=== PATIENT | male | born 1925 | race Caucasian/White ===

== ENCOUNTER → 2016-05-09 | Outpatient (CLI) | payer MEDICARE, OTHER ==
[~2016-05-09] MED LIST: ASPIRIN LO-DOSE81 MG PO; CENTRUM SILVER1 EAC1 PO; DEXILANT60 MG PO; FLOMAX0.4 MG PO; IMDUR30 MG PO; JANUVIA 100 MG100 MG PO; LEVEMIR FL100 UNIT/1 SUB-Q; LEVOTHROID(SYN75 MCG PO; LIPITOR10 MG PO; MIRALAX PO527 GM/BOT PO; NITROSTAT0.4 MG SL; NORVASC2.5 MG PO; PRILOSEC20 MG PO; REMERON15 MG PO; SIMBRINZA 1%-0.28 ML OPHTH; SYSTANE 0.3-0.1 EACH IOC; TIMOPTIC5 M1 OPHTH; TOPROL XL25 MG PO; TRAVATAN Z OPH2.5 ML OPHTH; TUMS REGULAR ST1 TAB PO; TYLENOL650 MG R; VITAMIN B-1000 MCG/M IM; VITAMIN B-1000 MCG/M SUB-Q; ZYLOPRIM300 MG PO
[2016-05-09 14:06] LABS: ALBUMIN 3.6 gm/dL (3.5-5.0); ANION GAP 8.2 (10.0-19.0); CALCIUM 8.4 mg/dL (8.5-10.5); CREATININE 1.5 mg/dL (0.6-1.3); MAGNESIUM 2.1 mg/dL (1.3-2.6); PHOSPHORUS 3.2 mg/dL (2.5-4.9); POTASSIUM 4.2 mMol/L (3.7-5.1)
== END | disposition disaster alternative care site (69) ==
LOC: LCNC 13:53
PROVIDERS: Internal Medicine Interventional Cardiology
DX: R07.9 Chest pain, unspecified (principal)

== ENCOUNTER → 2016-05-10 | Outpatient (CLI) | payer MEDICARE, OTHER ==
--- NOTE | ~2016-05-10 | ESTC ---
Cardiac Perfusion Imaging Demographics Patient Name BRANDY Manning Gender Male Patient Number [id number] Race Visit Number [id number] Ethnicity Corporate ID Room Number Accession Number [id number] Height Date of 1925 Weight Age 89 year(s) BSA Referring Braeden Benedict MD BMI Physician Interpreting Braeden Benedict MD Date of study 05/10/2016 Physician Supervising Julio Duvall NM Lilly Manzano MD/MARELY Sahu APRN Technologist Ordering Braeden Benedict MD Stress Rothenberger RVT, Physician cutter grind tool technician RDCS Linette Goodrich RDCS, RVT Stress ECG Julio Duvall Nurse Propmoises Castaneda RN Reading Physician Adelina FLORES Procedure Procedure Type: Nuclear Stress Test:Cardiolite Stress Test Procedure Start time: 05/10/2016 08:30 Indications: Chest pain. Risk Factors The patient risk factors include:former tobacco use, treated hypercholesterolemia, treated hypertension, insulin treated diabetes mellitus and dyslipidemia. Conclusions Summary Cardiolite SPECT images demonstrates homogenous uptake of radioactive tracer. No evidence of inducible reversible defect and no evidence of underlying fixed defect. Gross inspection of TID is normal. Gated images demonstrate normal left ventricular systolic function. LVEF is 58% Stress Protocols Resting ECG 1:1 AV paced. Resting HR:65 bpm Resting BP:183/80 mmHg Pre-stress physical exam: Patient assessed by Kala Kmi APRN prior to testing. Stress Protocol:Pharmacologic Predicted HR: 131 bpm HR response: Appropriate BP response: Appropriate Reason for termination:Infusion complete ECG Findings Indeterminate ECG due to baseline abnormalities. Arrhythmias No rhythm abnormality. Symptoms Shortness of breath. Stress Interpretation Negative stress ECG for ischemia. Normal heart rate and blood pressure response to stress. No atrial or ventricular arrhythmias. Remains in paced rythm. Imaging Results Applied corrections - Motion correction applied High risk findings Summed scores - Summed stress score: 11 - Summed rest score: 3 - Summed difference score: 8 Stress ejection Ejection fraction:58 % EDV :83 ml ESV :35 ml Stroke volume :48 ml LV mass :119 gr Imaging Protocols Rest Stress Isotope:Tc99m Sestamibi IV Isotope: Tc99m Sestamibi IV Isotope dose:11.2 mCi Isotope dose:34.8 mCi Date:05/10/2016 07:30 Date:05/10/2016 09:44 Technique: SPECT Technique: Gated Supine SPECT Supine Scan Time:45-60 minutes post injection Procedure Medications - Regadenoson (Lexiscan) 0.4 mg IV over 10-15 sec. I.V. 0.4 mg. Medical History Admission Data Admission date: 05/10/2016 Admission Time: 07:01 Hospital Status: Outpatient. Signatures dtt: Jak Deras (cardio) dtd: 05/10/16 0830 Physician Self Edit
== END | disposition disaster alternative care site (69) ==
LOC: GRAD 07:01
DX: R07.9 Chest pain, unspecified (principal); R06.02 Shortness of breath
CPT/HCPCS: A9500; J2785

== ENCOUNTER → 2016-06-20 | Outpatient (CLI) | payer MEDICARE, OTHER | END | disposition disaster alternative care site (69) | LOC: GRAD 07:38 | DX: R63.0 Anorexia (principal); K22.2 Esophageal obstruction; K44.9 Diaphragmatic hernia without obstruction or gangrene; K22.4 Dyskinesia of esophagus ==

== ENCOUNTER → 2016-06-30 | Day surgery (SDC) | payer MEDICARE, OTHER ==
[~2016-06-30] VITALS: Ht 167.6 cm; Wt 69.6 kg
== END | disposition disaster alternative care site (69) ==
LOC: GPOC 06-27 14:00 → GEND 07:22 → GPOC 07:30
PROC: 0DB58ZX Excision of Esophagus, Via Natural or Artificial Opening Endoscopic, Diagnostic (ICD-10-PCS; principal; 2016-06-30)
PROC: 0DB98ZX Excision of Duodenum, Via Natural or Artificial Opening Endoscopic, Diagnostic (ICD-10-PCS; 2016-06-30)
PROC: 0DB68ZX Excision of Stomach, Via Natural or Artificial Opening Endoscopic, Diagnostic (ICD-10-PCS; 2016-06-30)
PROC: 0D758ZZ Dilation of Esophagus, Via Natural or Artificial Opening Endoscopic (ICD-10-PCS; 2016-06-30)
DX: K22.2 Esophageal obstruction (principal); K22.4 Dyskinesia of esophagus; K44.9 Diaphragmatic hernia without obstruction or gangrene; I12.9 Hypertensive chronic kidney disease with stage 1 through stage 4 chronic kidney disease, or unspecified chronic kidney disease; E11.22 Type 2 diabetes mellitus with diabetic chronic kidney disease; E11.649 Type 2 diabetes mellitus with hypoglycemia without coma; N18.3 Chronic kidney disease, stage 3 (moderate); G47.33 Obstructive sleep apnea (adult) (pediatric); K21.9 Gastro-esophageal reflux disease without esophagitis; E03.9 Hypothyroidism, unspecified; E78.5 Hyperlipidemia, unspecified; Z87.891 Personal history of nicotine dependence; Z79.82 Long term (current) use of aspirin; Z79.4 Long term (current) use of insulin; Z79.899 Other long term (current) drug therapy; Z98.41 Cataract extraction status, right eye; Z98.42 Cataract extraction status, left eye; Z90.49 Acquired absence of other specified parts of digestive tract; Z98.890 Other specified postprocedural states
CPT/HCPCS: C1726; J2001; J7030